=== PATIENT | male | born 1970 | race Caucasian/White ===

== ENCOUNTER 2018-05-28 06:05 | Day surgery (SDC) | payer OTHER | END 2018-05-28 10:50 | disposition home or self-care (01) | LOC: AMB-ENDOS 06:05 | DX: C18.0 Malignant neoplasm of cecum (principal); K64.1 Second degree hemorrhoids ==

== ENCOUNTER 2019-08-05 06:25 | Day surgery (SDC) | payer OTHER | END 2019-08-05 10:20 | disposition home or self-care (01) | LOC: AMB-ENDOS 06:25 | DX: D13.1 Benign neoplasm of stomach (principal); K64.1 Second degree hemorrhoids; D12.2 Benign neoplasm of ascending colon; K44.9 Diaphragmatic hernia without obstruction or gangrene ==

== ENCOUNTER 2020-09-21 07:52 | Day surgery (SDC) | payer OTHER | END 2020-09-21 13:40 | disposition home or self-care (01) | LOC: AMB-ENDOS 07:52 → AMB-ERCP 13:00 → AMB-ENDOS 13:40 | PROVIDERS: ATTEND Colon & Rectal Surgery | DX: K62.89 Other specified diseases of anus and rectum (principal); K64.1 Second degree hemorrhoids; Z20.828 Contact with and (suspected) exposure to other viral communicable diseases ==

== ENCOUNTER 2023-05-27 06:05 | Day surgery (SDC) | payer OTHER | END 2023-05-27 13:00 | disposition home or self-care (01) | LOC: CIR.AMB 06:05 | PROVIDERS: ATTEND Colon & Rectal Surgery | DX: C18.0 Malignant neoplasm of cecum (principal); Z85.038 Personal history of other malignant neoplasm of large intestine; K92.1 Melena; K29.00 Acute gastritis without bleeding; K21.9 Gastro-esophageal reflux disease without esophagitis; Z20.822 Contact with and (suspected) exposure to COVID-19; E78.00 Pure hypercholesterolemia, unspecified ==